=== PATIENT | male | born 1955 | race Caucasian/White ===

== ENCOUNTER → 2018-05-15 | Outpatient (CLI) | payer OTHER, MEDICARE ==
[~2018-05-15] VITALS: Ht 157.5 cm; Wt 59.0 kg
[~2018-05-15] MED LIST: ADULT ONE DAI200 MCG PO; BENEFIBER1 EAC1 PO; CLARITIN10 MG PO; LOPRESSOR25 PO
--- NOTE | ~2018-05-15 | PATH ---
[facility] [place] [address] PATHOLOGY RPT PROCEDURE Name: [place] Room #: REG [facility].#: [id number] Admission: 05/15/18 Date of : 53 Discharge: Report #: [id number] Path Case #: [id number] [facility] Accession Number: [id number] . 01 Material submitted: . PART A: DUODENAL BX R/O CELIAC PART B: GASTRIC BODY BX R/O H PYLORI PART C: DISTAL ESOPHAGUS R/O BARRETTS PART D: GASTRIC POLYP BX . 01 Clinician provided ICD-10: K21.9 . 01 Clinical history: . Pre-op diagnosis: Reflux, screening Post-op diagnosis: Esophagitis, gastritis, Schatzki's ring, hiatal hernia, diverticulosis, internal hemorrhoids, gastric polyp A. R/O celiac B. R/O H. pylori C. R/O Wood's . 02 Diagnosis: A. Duodenum, "duodenal biopsy": - No obvious diagnostic changes. - There is no evidence of acute cryptitis, granulomas, adenomatous change, sprue like changes or malignancy. . B. Gastric biopsy, "gastric body biopsy": - Mild chronic reactive gastropathy. - Immunoperoxidase stain for Helicobacter pylori is negative. . C. Glandular gastric-type mucosa, "distal esophagus biopsy": - Benign glandular gastric-type mucosa with mild reactive changes. - There is no squamous mucosa present for evaluation. - There is no evidence of goblet cell metaplasia, dysplasia or malignancy. . D. Gastric biopsy, "gastric polyp biopsy": - Fundic gland polyp. - There is no evidence of adenomatous change, high-grade dysplasia or malignancy. . (SHA:mitchel; 05/17/2018) MBSukumar/05/17/2018 . 02 Electronically signed: . Reese Wheeler MD, Pathologist NPI- [id number] [place] [address] PATHOLOGY RPT PROCEDURE Name: [place] JACK[place] Room #: REG [facility].#: [id number] Admission: 05/15/18 Date of : 53 Discharge: Report #: [id number] Path Case #: [id number] . 01 Gross description: . A. The specimen is received in formalin, labeled "[place], duodenal biopsy, R/O celiac". Received is a segment of pale roblero soft tissue measuring 0.5 cm in maximum dimensions. The specimen is submitted entirely in cassette A1. . B. The specimen is received in formalin, labeled "[place], gastric body biopsy, R/O H. pylori". Received are two segments of pale roblero soft tissue measuring 0.3 cm each in maximum dimensions. The specimen is submitted entirely in cassette B1. . C. The specimen is received in formalin, labeled "[place], distal esophagus biopsy, R/O Wood's". Received is a segment of pale roblero soft tissue measuring 0.4 cm in maximum dimensions. The specimen is submitted entirely in cassette C1. . D. The specimen is received in formalin, labeled "[place], gastric polyp biopsy". Received are two segments of pale roblero soft tissue measuring 0.3 and 0.4 cm in maximum dimensions. The specimen is submitted entirely in cassette D1. (CAA; 05/16/2018) QAC/QAC . 02 Pathologist provided ICD-10: K29.50, K31.7, K21.9 . 02 CPT . 232869, [id number], [id number], [id number], [id number] Specimen Comment: A courtesy copy of this report has been sent to Specimen Comment: [phone]. Specimen Comment: Report sent to Performed at: [address] [facility], [place], [place] [id number] MD Niranjan Garcia MD Phone: [phone] Performed at: [address] [facility] [address] [id number] MD Leah Cifuentes MD Phone: [phone]
== END | disposition home or self-care (01) ==
LOC: GI 08:18
DX: Z12.11 Encounter for screening for malignant neoplasm of colon (principal); K57.30 Diverticulosis of large intestine without perforation or abscess without bleeding; K64.8 Other hemorrhoids; K31.7 Polyp of stomach and duodenum; K21.0 Gastro-esophageal reflux disease with esophagitis; K22.2 Esophageal obstruction; K44.9 Diaphragmatic hernia without obstruction or gangrene; K29.70 Gastritis, unspecified, without bleeding; K31.9 Disease of stomach and duodenum, unspecified; I10 Essential (primary) hypertension; F41.9 Anxiety disorder, unspecified; F32.9 Major depressive disorder, single episode, unspecified; I35.1 Nonrheumatic aortic (valve) insufficiency; M41.9 Scoliosis, unspecified; G47.30 Sleep apnea, unspecified; Z98.818 Other dental procedure status; Z98.890 Other specified postprocedural states; Z79.899 Other long term (current) drug therapy
CPT/HCPCS: 43239; G0121; 62110; 62900